=== PATIENT | male | born 1980 | race Two or more races ===

== ENCOUNTER 2022-05-21 11:54 | Emergency (ER) | payer MEDICAID, SELFPAY ==
[2022-05-21 12:23] VITALS: BP 127/88; PULSE 87; RESP 28; TEMP 36.7; O2SAT 98; BMI 34.0
--- NOTE | 2022-05-21 12:45 | ED_ITS ---
HPI - General Adult General Time Seen by Provider: 12:35 Date Seen: 05/21/22 Chief complaint: Back Injury/Pain Stated complaint: Lower back pain Time Seen by Provider: 05/21/22 12:04 Source: patient Mode of arrival: ambulatory Limitations: no limitations History of Present Illness HPI narrative: This 41-year-old male comes in reporting low back pain over the past several days. He has a history of back pain from lumbar radiculopathy that occurred about 5 years ago. He comes in because of severe back pain that radiates down his left leg. He states that he has not taken any medications at home for this. He does report that he has an appointment in a few weeks to have a steroid injection into his back. Location: back Radiation: non-radiation (Radiates to the left leg.) Severity: severe Pain Consistency: constant Relieving factors: none Exacerbating factors: none Related Data Previous Rx's Medication Instructions Recorded cyclobenzaprine 10 mg tablet 10 mg PO TID #15 tab 05/21/22 ketorolac 10 mg tablet 10 mg PO TID 5 Days #15 tab 05/21/22 methylprednisolone 4 mg tablets in 4 mg PO DAILY #21 ea 05/21/22 a dose pack Allergies Allergy/AdvReac Type Severity Reaction Status Date / Time No Known Drug Allergies Allergy Verified 05/21/22 12:28 Review of Systems Status of ROS: Reports: 10 or more systems reviewed and unremarkable except as noted in History and below Const: Denies: fever Eyes: Denies: change in vision ENMT: Reports: throat pain and ear pain Cardio: Denies: chest pain or shortness of breath with exertion Resp: Denies: shortness of breath GI: Denies: abdominal pain : Denies: painful urination Musculo: Reports: back pain Neuro: Denies: numbness in extremities Psych: Denies: anxiety or suicidal ideation Endo: Denies: excessive urination Sky/Lymph: Denies: easy bruising or easy bleeding PFSH PFSH Social History Smoking Status: Current every day smoker What tobacco products do you use: cigarettes Do you use any of these nicotine containing products: None Second hand tobacco smoke exposure: Yes How often do you have a drink containing alcohol: 2-3 times a week How many standard drinks containing alcohol do you have on a typical day: 1 or 2 AUDIT-C Alcohol total score: 3 Non-prescribed substance use: denies use Exam Const: Vital Signs, click to edit/add: Vital Signs - 24 hr 05/21/22 12:23 05/21/22 13:51 Temperature 98.1 F Pulse Rate [Left P ulse Oximeter] 87 72 Respiratory Rate 28 H Blood Pressure [Le ft Upper Arm] 127/88 132/86 Pulse Oximetry 98 99 Common normals: oriented x3 General appearance: cooperative Orientation/consciousness: Yes oriented to person, Yes oriented to place and Yes oriented to time HENMT: Common normals: normocephalic and TM's normal bilaterally Head and scalp: normal to inspection and normocephalic Face and sinus: normal facial exam Tympanic membrane: TM's normal bilaterally Mouth: other (Pharyngeal erythema without exudate.) Eye: Common normals: PERRL Pupil: PERRL Neck & C-Spine: Common normals: full ROM Chest: Common normals: inspection of chest normal Resp: Common normals: normal respiratory effort, no use of accessory muscles and clear to auscultation bilaterally Auscultation: clear to auscultation bilaterally Cardio: Common normals: regular rhythm Rhythm: regular rhythm GI: Common normals: Normal to inspection, nondistended, normoactive bowel sounds present : Common normals: no CVA tenderness Bladder/kidney exam: no CVA tenderness Back & Pelvis: Common normals: no CVA tenderness Lumbar spine/lower back: paraspinal muscle tenderness Extremity: Common normals: normal to inspection Neuro: Common normals: oriented x3 Sensorium/orientation: oriented to person, oriented to place and oriented to time Psych: Common normals: mental status grossly normal Skin: Common normals: no rashes or lesions noted General skin exam: no rashes or lesions noted Course Course Hospital Course: This patient comes in with recurrent onset of low back pain as described above. He does not have any injury or strenuous activity that is triggered these symptoms. He does have a history of lumbar radiculopathy. The patient received an intramuscular injection of Toradol 30 mg. He was also complaining of a sore throat. Rapid strep test was acquired. The patient did not care to wait for the results of the rapid strep test. He was very interested in leaving. He did agree to received prescriptions for Toradol, Flexeril, and Medrol Dosepak. Vital Signs Vital signs: Initial Vital Signs Temperature 98.1 F 05/21/22 12:23 Temperature Source Temporal Artery Scan 05/21/22 12:23 Pulse Rate 87 05/21/22 12:23 Respiratory Rate 28 H 05/21/22 12:23 Blood Pressure 127/88 05/21/22 12:23 Blood Pressure Mean 101 05/21/22 12:23 Blood Pressure Position Supine 05/21/22 12:23 Pulse Oximetry 98 05/21/22 12:23 Oxygen Delivery Method 05/21/22 12:23 Vital Signs Temperature 98.1 F 05/21/22 12:23 Pulse Rate 87 05/21/22 12:23 Respiratory Rate 28 H 05/21/22 12:23 Blood Pressure 127/88 05/21/22 12:23 Pulse Oximetry 98 05/21/22 12:23 Temperature 98.1 F 05/21/22 12:23 Pulse Rate 72 05/21/22 13:51 Respiratory Rate 28 H 05/21/22 12:23 Blood Pressure 132/86 05/21/22 13:51 Pulse Oximetry 99 05/21/22 13:51 Medical Decision Making MDM Narrative Medical decision making narrative: This patient comes in with symptoms suspicious for lumbar radiculopathy. He also has a sore throat. Prescriptions are provided for Toradol, Flexeril, and Medrol Dosepak. He prefers to leave and states that he will check my chart for lab results of the strep test. Discharge Plan Discharge Clinical Impression: Lumbar radiculopathy Patient Disposition: Home, Self-Care Condition: Unchanged Instructions: Lumbar Radiculopathy (ED) Discharge Diet: Regular Prescriptions: New ketorolac 10 mg tablet 10 mg PO TID 5 Days Qty: 15 0RF cyclobenzaprine 10 mg tablet 10 mg PO TID Qty: 15 0RF methylprednisolone 4 mg tablets,dose pack 4 mg PO DAILY Qty: 21 0RF Follow Up/Referrals: Mason Cramer DO [Referring] - Stand Alone Forms: [facility]
[2022-05-21] MEDS: KETOROLAC 30 MG/ML inj IM (13:28)
[2022-05-21 13:51] VITALS: BP 132/86; PULSE 72; O2SAT 99
--- NOTE | 2022-05-21 14:00 | ED.NURSE ---
Pt did not want to wait for DC paperwork, stated he was going outside to get a sandwich from his and would come back in. Pt did not return back inside. Pt sent his back inside to pecan picker his DC paperwork. DC paperwork not ready at this time, pt did not want to wait for paperwork either, pt confirmed pt pharmacy preference of [facility] in [place] and then left as well.
[2022-05-21 14:37] VITALS: BP 132/86; PULSE 72; RESP 24
[2022-05-21 16:16] LABS: Strep A DNA Probe* DETECTED (No Detected)
== END 2022-05-21 14:00 | disposition home or self-care (01) ==
PROVIDERS: Emergency Provider Emergency Medicine Emergency Medical Services
DX: M54.16 Radiculopathy, lumbar region (principal); J02.0 Streptococcal pharyngitis
CPT/HCPCS: 96372; 87651; 99283; 99284; J1885

== ENCOUNTER 2022-06-09 07:44 | Outpatient (CLI) | payer MEDICAID, SELFPAY | END 2022-06-09 07:45 | disposition home or self-care (01) | LOC: INJ CL 07:45 | PROVIDERS: Visit Provider Family Medicine | DX: M54.16 Radiculopathy, lumbar region (principal); M51.36 Other intervertebral disc degeneration, lumbar region | CPT/HCPCS: 62323; J0702; Q9966 ==

== ENCOUNTER 2023-06-26 05:15 | Emergency (ER) | payer MEDICAID, SELFPAY ==
[2023-06-26 05:25] VITALS: BP 140/97; PULSE 68; RESP 24; TEMP 36.1; O2SAT 96
--- NOTE | 2023-06-26 05:27 | CRLHL7_ITS ---
For Patients: As a result of the Century Cures Act, medical imaging exams and procedure reports are released immediately into your electronic medical record. You may view this report before your referring provider. If you have questions, please contact your health care provider. Indication: Fall Technique: Volumetric multidetector CT images of the cervical spine were obtained without the administration of IV contrast. Comparison: None available. Findings: The cervical vertebral body heights are grossly maintained. There is straightening of the normal cervical lordosis without evidence of significant spondylolisthesis. There is no displaced fracture or dislocation. There is mild multilevel degenerative disc disease with disc height loss and marginal osteophyte formation worse at the C6-C7 level. The facets are well imbricated. The paraspinous soft tissues are grossly within normal limits. Impression: Mild degenerative change and likely positional straightening of the normal cervical lordosis without evidence of displaced fracture. Please note that all CT scans at this facility use dose modulation, iterative reconstruction, and/or weight-based dosing when appropriate to reduce radiation dose to as low as reasonably achievable. Dictated by Rogelio Aranda MD @ 06/26/2023 6:14:28 AM (Electronically Signed)
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
--- NOTE | 2023-06-26 05:27 | CRLHL7_ITS ---
For Patients: As a result of the Century Cures Act, medical imaging exams and procedure reports are released immediately into your electronic medical record. You may view this report before your referring provider. If you have questions, please contact your health care provider. Indication: Fall, intoxication Technique: Volumetric multidetector CT images of the chest, abdomen, and pelvis were obtained without the administration of intravenous contrast. No low osmolar intravenous contrast Comparison: None available. FINDINGS: CHEST The thoracic inlet is unremarkable. The thyroid gland is within normal limits. The thoracic aorta is nonaneurysmal. The pulmonary arteries are nondilated. There is no mediastinal, hilar, or axillary adenopathy. There is no focal consolidation, effusion, or pneumothorax. The thoracic osseus structures are intact without fracture, lytic, or blastic lesion. The thoracic vertebral body heights are grossly maintained with minimal endplate Schmorl`s defects. There is no significant spondylolisthesis or displaced fracture. ABDOMEN AND PELVIS The liver is moderately enlarged without obvious focal abnormality. The spleen is normal in attenuation and size. The gallbladder is unremarkable without radiopaque calculus. There is no intrahepatic or common ductal dilatation. There is marked distention of the stomach with fluid. The pancreas is normal in attenuation without significant atrophy. The adrenal glands are unremarkable without evidence of adenoma. The kidneys demonstrate no evidence of obstructive radiopaque calculus. There is a mild to moderate amount of intracolonic stool. There is minimal distal colonic diverticulosis. The appendix is unremarkable without significant inflammatory change. The abdominal aorta is nonaneurysmal with no significant atherosclerotic disease. The remaining solid pelvic viscera are otherwise grossly unremarkable. There is no pathologically enlarged epigastric, mesenteric, retroperitoneal, or pelvic sidewall lymph node. The anterior abdominal wall is grossly intact without significant hernias. There is no free air or free fluid. Degenerative changes of the bilateral hips and sacroiliac joints are appreciated. The lumbar vertebral body heights are grossly maintained with mild multi-level degenerative disc disease. Impression: 1. No acute cardiopulmonary abnormality. 2. No acute intra-abdominal abnormality is appreciated. 3. Incidental note made of moderate distention of the stomach. Please note that all CT scans at this facility use dose modulation, iterative reconstruction, and/or weight-based dosing when appropriate to reduce radiation dose to as low as reasonably achievable. Dictated by Rogelio Aranda MD @ 06/26/2023 6:19:02 AM (Electronically Signed)
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
[2023-06-26 05:59] LABS: Basophils Percent Auto 0.3 % (0.0-3.0); Eosinophils Percent Auto 0.3 % (0.0-7.0); Hematocrit 42.5 % (37.0-53.0); Hemoglobin* 14.9 gm/dL (13.5-17.5); Immature Granulocytes Pct Auto 1.1 %; Lymphocytes Percent Auto 11.7 % (20-44); Mean Corpuscular HGB Conc 35 gm/dL (32-36); Mean Corpuscular Hemoglobin 31 pg (26-34); Mean Corpuscular Volume 88 fL (80-100); Monocytes Percent Auto 3.5 % (0.0-11.0); Neutrophils Percent Auto 83.1 % (42.0-72.0); Platelet Count* 320 K/uL (140-440); RDW Coefficient of Variation % 11.9 % (11.5-15.5); Red Blood Count 4.85 m/uL (4.30-5.90); White Blood Count* 11.64 K/uL (4.50-11.00)
[2023-06-26 06:00] LABS: Slide Review Reflex No
[2023-06-26 06:07] LABS: Albumin* 4.6 g/dL (3.3-5.0)
[2023-06-26 06:08] LABS: Chloride* 100 mmol/L (96-114); Potassium* 3.5 mmol/L (3.6-5.1); Sodium* 137 mmol/L (135-149)
[2023-06-26 06:10] LABS: Bilirubin Total* 0.4 mg/dL (0.1-1.5); Creatinine* 1.1 mg/dL (0.5-1.5); Estimated Glomerular Filt Rate 87 ml/min
[2023-06-26 06:11] LABS: Alanine Aminotransferase* 23 U/L (4-50); Alkaline Phosphatase* 77 U/L (40-150); Aspartate Amino Transferase* 32 U/L (12-35); Blood Urea Nitrogen* 11 mg/dL (5-24); Calcium* 10.8 mg/dL (8.4-10.6); Carbon Dioxide* 27 mmol/L (20-32); Glucose* 105 mg/dL (60-115); Total Protein* 7.9 g/dL (6.0-8.3)
[2023-06-26 06:12] LABS: Ethanol* 0.11 % (0.01-0.03)
[2023-06-26] MEDS: TETANUS/DIPHTH/PERTUSSIS 0.5 ML SYRINGE IM (06:56)
--- NOTE | 2023-06-26 07:08 | ED.NURSE ---
patients left shoulder and left elbow cleaned and dressed with adaptic and bacitracin.
--- NOTE | 2023-06-26 18:42 | ED.NURSE ---
chart accessed as the was concerned as he was still dizzy. was told she was always welcomed to bring him back if they feel the need to do this.
== END 2023-06-26 07:09 | disposition home or self-care (01) ==
PROVIDERS: Emergency Provider Internal Medicine; PCP Student in an Organized Health Care Education/Training Program
DX: S00.01XA Abrasion of scalp, initial encounter (principal); S40.212A Abrasion of left shoulder, initial encounter; S50.312A Abrasion of left elbow, initial encounter; V19.3XXA Pedal cyclist (driver) (passenger) injured in unspecified nontraffic accident, initial encounter
CPT/HCPCS: 36415; 70450; 71250; 72125; 74176; 80053; 82077; 85025; 90471; 90715; 99284; 99291

== ENCOUNTER 2025-04-26 20:01 | Emergency (ER) | payer BC, SELFPAY ==
--- OUTSIDE RECORDS SUMMARY | 2025-04-26 20:03 | XMS_ITS | Clinical Summary ---
Author Organization [facility] Address [address] [place] [id number] Care Team Providers Care Cage Supervisor Name Role Phone Pcp, No Primary Care Provider Unavailabl e Allergies No known active allergies Medications albuterol HFA (PRO-AIR; VENTOLIN; PROVENTIL) 90 mcg/actuation inhalerIndications :Mild intermittent reactive airway disease without complication (HC) Inhale 1-2 Puffs by mouth every 4 hours if needed. 1 Each 3 1 Active albuterol (PROVENTIL) 0.083 % neb solutionIndication s:Mild intermittent asthma with acute exacerbation (HC) Inhale 3 mL (2.5 mg) via a nebulizer every 4 hours if needed for Shortness Of Breath. 150 mL 2 Active omeprazole (PRILOSEC) 40 mg Delayed-Release capsuleIndications :Gastroesophageal reflux disease without esophagitis Take 1 Capsule (40 mg) by mouth once daily before a meal. 90 Capsule 5 Active cyclobenzaprine (FLEXERIL) 10 mg tabletIndications: Spasm of right trapezius muscle Take 1 Tablet (10 mg) by mouth 3 times daily if needed for Muscle Spasm. Do not use within 8 hours of working or driving. 21 Tablet 5 Active levothyroxine (SYNTHROID) 25 mcg tabletIndications: Subclinical hypothyroidism Take 1 Tablet (25 mcg) by mouth before breakfast. 90 Tablet 5 Active cholecalciferol 50,000 unit capsuleIndications :Vitamin D deficiency Take 1 Capsule (50,000 units) by mouth every Wednesday and . 24 Capsule 5 Active Active Problems Problem Noted Date Diagnosed Date Subclinical hypothyroidism 02/02/2025 Vitamin D deficiency 02/02/2025 Tobacco dependence due to cigarettes 01/30/2025 Mild intermittent asthma with acute exacerbation 10/01/2022 Left lumbar radiculopathy 03/30/2022 Encounters Date Type Department Care Team Description 02/27/2025 8:10 AM CDT Office Visit [facility] [address] [place] [address] Swathi Kaufman PA Follow Up (Sertraline and flexeril) 02/27/2025 Travel 01/30/2025 8:15 AM CDT Office Visit [facility] [address] [place] [address] Peggy Sanders PA Physical (Non-Fasting. Feeling fatigued for about 2-3 weeks. Having concerns with sleeping. Sleeping about 5-6 hours a day, with some sleepless nights in between. Mind still races. The past 3 days has slept for about 18 hours a day. Having some neck pain and hands having stiffness and swollen.) 01/30/2025 Travel from Last 3 Months Immunizations Immunization Administration Dates Next Due Tdap 06/26/2023 Family History Medical History Relation Name Comments Hypertension Brother Hypertension Father Stroke Father Diabetes Mother Hypothyroidism Mother Cancer-breast Sister Hypertension Sister Relation Name Status Comments Brother Alive Father Mother Alive Sister Alive Social History Tobacco Use Types Packs/Day Years Used Date Smoking Tobacco: Every Day Cigarettes 0.5 24.6 Started: 2000 Smokeless Tobacco: Never Tobacco Cessation:Ready to Q uit: Not Asked; Counseling Given: Not Answered Alcohol Use Standard Drinks/Week Comments Yes 0 (1 standard drink = 0.6 oz pur e alcohol) PHQ-2 Answer Date Recorded PHQ-2 TOTAL SCORE 4 01/30/2025 Social Connections Answer Date Recorded Do you often feel lonely or isolated from those around you? 0 01/30/2025 Alcohol Use Answer Date Recorded How often do you have a drink containing alcohol ? 3 07/08/2022 How many drinks containing a lcohol do you have on a typical day when you are drinking? 4 07/08/2022 How often do you have five or more drinks on one occasion? 3 07/08/2022 Financial Resource Strain Answer Date R ecorded Difficulty of Paying Living Expenses 3 01/30/2025 Difficulty of Paying Living Expenses Not on file 01/30/2025 Food Insecurity Answer Date Recorded Do you worry your food will run out before you are able to buy more? 1 01/30/2025 Transportation Needs Answer Date Record ed Does lack of transportation keep you from medica l appointments? 1 01/30/2025 Does lack of transportation keep you from work, meetings or getting things that you need? 1 01/30/2025 Housing Stability Answer Date Recorded What is your housing situation today? 1 01/30/2025 Utilities Answer Date Recorded Do you have trouble paying f or utilities (for example, heat, electricity, water, phone)? 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 on file Not on casper e Obstetrics History Last Filed Vital Signs Vital Sign Reading Time Taken Comments Blood Pressure 118/82 02/27/2025 8:21 AM CDT Pulse 81 02/27/2025 8:21 AM CDT Temperature 36.6 C (97.9 F) 02/02/2023 8:14 PM CDT Respiratory Rate 18 02/02/2023 8:14 PM CDT Oxygen Saturation 96% 01/30/2025 8:27 AM CDT Inhaled Oxygen Concentration - - Weight 103.9 kg (229 lb) 02/27/2025 8:21 AM CDT Height 174 cm (5' 8.5) 01/30/2025 8:27 AM CDT Body Mass Index 34.31 01/30/2025 8:27 AM CDT Plan of Treatment Health Maintenance Due Date Last Done Comments Hepatitis B series for 19+ ( 1 of 3 - 19+ 3-dose series) 2001 Pneumococcal series for age 6-49 (1 of 2 - PCV) 2001 COVID-19 vaccine series ( season) 2024 09/04/2021, 07/30/2021 Influenza Vaccine (Season Ended) 2025 BMI (ht and wt on same day) for age 18+ 01/30/2026 0 01/30/2025, 12/15/2021 Depression screening for age 12+ 01/30/2026 01/31/20 25, 10/10/2021 Lipids for age 35-44 01/30/2030 01/30/2025 Tetanus booster 06/26/2033 06/26/2023 Tdap Completed 06/26/2023 HIV for age 15-65 Completed 01/30/2025 Hepatitis C screening for age 18-79 Completed 01/30 Procedures Procedure Name Priority Date/Time Associated Diagnosis Comments T4,FREE Routine 01/30/2025 9:38 AM CDT LIPID PANEL W REFLEX MEASURED LDL Routine 01/30/2025 9:38 AM CDT Screening for cardiovascular condition ANTI HCV Routine 01/30/2025 9:38 AM CDT Encounter for hepatitis C screening test for low risk patient ANTI HIV 1/2 Routine 01/30/2025 9:38 AM CDT Encounter for screening for human immunodeficiency virus (HIV) TSH WITH REFLEX Routine 01/30/2025 9:38 AM CDT Fatigue, unspecified type FERRITIN Routine 01/30/2025 9:38 AM CDT Fatigue, unspecified type CBC WITH AUTO DIFFERENTIAL Routine 01/30/2025 9:38 AM CDT Fatigue, unspecified type VITAMIN D 25 (DEFICIENCY) Routine 01/30/2025 9:38 AM CDT Fatigue, unspecified type from Last 3 Months Results * (ABNORMAL) TSH WITH REFLEX (01/30/2025 9:38 AM CDT) TSH W/REFLEX TO FT4 8.77(H) 0.40 - 4.50 mIU/L [facility] Blood BLOOD SPECIMEN / Unknown 01/30/2025 9:38 AM CDT 01/30/2025 9:38 AM CDT Peggy STOVER CHEMISTRY Final Res ult [employer] [facility] [address] [place] [address], [place] [phone] [facility] [address] [place] [address] * LIPID PANEL W REFLEX MEASURED LDL [[id number]} (01/30/2025 9:38 AM CDT) [facility] CHOLESTEROL, TOTAL 165 <200 mg/dL [facility] HDL CHOLESTEROL 79 > OR = 40 mg/dL [facility] TRIGLYCERIDES 60 <150 mg/dL [facility] LDL-CHOLESTEROL 72 mg/dL (calc) [facility] Comment: Reference range: <100 Desirable range <100 mg/dL for primary prevention; <70 mg/dL for patients with CHD or diabetic patients with > or = 2 CHD risk factors. LDL-C is now calculated using the Jonathan-Santiago calculation, which is a validated novel method providing better accuracy than the Friedewald equation in the estimation of LDL-C. Jonathan SS et al. TRINO. 2013;310(19): 2741-1792 (http://education.[employer]faq/TLQ720) CHOL/HDLC RATIO 2.1 <5.0 (calc) [facility] NON HDL CHOLESTEROL 86 <130 mg/dL (calc) [facility] Comment: For patients with diabetes plus 1 major ASCVD risk factor, treating to a non-HDL-C goal of <100 mg/dL (LDL-C of <70 mg/dL) is considered a therapeutic option. Blood BLOOD SPECIMEN / Unknown 01/30/2025 9:38 AM CDT 01/30/2025 9:38 AM CDT Peggy STOVER CHEMISTRY Final Res ult [employer] [facility] [address] [place] [address], [facility] [address] [place] [address] * (ABNORMAL) VITAMIN D 25 (DEFICIENCY) (01/30/2025 9:38 AM CDT) Pathologist [facility] VITAMIN D,25-OH,TOTAL,IA 11(L) 30 - 100 ng/mL [facility] Comment: Vitamin D Status 25-OH Vitamin D: Deficiency: <20 ng/mL Insufficiency: 20 - 29 ng/mL Optimal: > or = 30 ng/mL For 25-OH Vitamin D testing on patients on D2-supplementation and patients for whom quantitation of D2 and D3 fractions is required, the QuestAssureD(TM) 25-OH VIT D, (D2,D3), LC/MS/MS is recommended: order code [id number] (patients >2yrs). See Note 1 Note 1 For additional information, please refer to http://[employer]ioDx.[employer]faq/RSG340 (This link is being provided for informational/ educational purposes only.) Blood BLOOD SPECIMEN / Unknown 01/30/2025 9:38 AM CDT 01/30/2025 9:38 AM CDT Peggy STOVER SEND OUTS Final Res ult [employer] [facility] [address] [place] [address], [facility] [address] [place] [address] * ANTI HCV [57105.2] (01/30/2025 9:38 AM CDT) Pathologist [facility] HEPATITIS C ANTIBODY NON-REACTI VE NON-REACT FLACO [facility] Comment: HCV antibody was non-reactive. There is no laboratory evidence of HCV infection. In most cases, no further action is required. However, if recent HCV exposure is suspected, a test for HCV RNA (test code 57311) is suggested. For additional information please refer to http://education.[employer].K[employer]/faq/IBA95c9 (This link is being provided for informational/ educational purposes only.) Blood BLOOD SPECIMEN / Unknown 01/30/2025 9:38 AM CDT 01/30/2025 9:38 AM CDT Peggy Jimenestemo STOVER SEND OUTS Final Res ult Performing Organization Address [facility]/ZIP Co de Phone Number [employer] [facility] [address] [place] [address], [place] [phone] [facility] [address] [place] [address] * ANTI HIV 1/2 [48501.0] (01/30/2025 9:38 AM CDT) HIV AG/AB, 4TH GEN NON-REACT FLACO NON-REACT FLACO [facility] [place] Comment: HIV-1 antigen and HIV-1/HIV-2 antibodies were not detected. There is no laboratory evidence of HIV infection. PLEASE NOTE: This information has been disclosed to you from records whose confidentiality may be protected by state law. If your state requires such protection, then the state law prohibits you from making any further disclosure of the information without the specific written consent of the person to whom it pertains, or as otherwise permitted by law. A general authorization for the release of medical or other information is NOT sufficient for this purpose. For additional information please refer to http://CardioDx.[employer]OOWALK.Kids360/faq/ZRX868 (This link is being provided for informational/ educational purposes only.) The performance of this assay has not been clinically validated in patients less than 2 years old. Blood BLOOD SPECIMEN / Unknown 01/30/2025 9:38 AM CDT 01/30/2025 9:38 AM CDT Peggy Jessicarosa STOVER SEND OUTS Final Res ult Performing Organization Address [facility]/State/ZIP Co de Phone Number [employer] [facility] [address] [employer] [place] [address], [facility] [address] [facility] [place] [address] * CBC AND DIFFERENTIAL (01/30/2025 9:38 AM CDT) WHITE BLOOD CELL COUNT 8.3 3.8 - 10.8 Thousand/u L [facility] RED BLOOD CELL COUNT 4.62 4.20 - 5.80 Million/uL [facility] HEMOGLOBIN 14.3 13.2 - 17.1 g/dL [facility] HEMATOCRIT 42.8 38.5 - 50.0 % [facility] MCV 92.6 80.0 - 100.0 fL [facility] MCH 31.0 27.0 - 33.0 pg [facility] MCHC 33.4 32.0 - 36.0 g/dL [facility] Comment: For adults, a slight decrease in the calculated MCHC value (in the range of 30 to 32 g/dL) is most likely not clinically significant; however, it should be interpreted with caution in correlation with other red cell parameters and the patient's clinical condition. RDW 12.5 11.0 - 15.0 % [facility] PLATELET COUNT 334 140 - 400 Thousand/u L [facility] MPV 10.9 7.5 - 12.5 fL [facility] ABSOLUTE NEUTROPHILS 4,955 1,500 - 7,800 cells/uL [facility] ABSOLUTE LYMPHOCYTES 2,440 850 - 3,900 cells/uL [facility] ABSOLUTE MONOCYTES 639 200 - 950 cells/uL [facility] ABSOLUTE EOSINOPHILS 216 15 - 500 cells/uL [facility] ABSOLUTE BASOPHILS 50 0 - 200 cells/uL [facility] NEUTROPHILS 59.7 % [facility] LYMPHOCYTES 29.4 % [facility] MONOCYTES 7.7 % [facility] EOSINOPHILS 2.6 % [facility] BASOPHILS 0.6 % [facility] Blood BLOOD SPECIMEN / Unknown 01/30/2025 9:38 AM CDT 01/30/2025 9:38 AM CDT Peggy STOVER HEMATOLOGY Final Res ult Performing Organization Address [facility]/ZIP Co de Phone Number [facility] [address] [place] [address], [place] [phone] [facility] [address] [place] [address] * T4,FREE (01/30/2025 9:38 AM CDT) T4, FREE 1.1 0.8 - 1.8 ng/dL [facility] 01/30/2025 9:38 AM CDT 01/30/2025 9:38 AM CDT Peggy STOVER CHEMISTRY Final Res ult Performing Organization Address [facility] Co de Phone Number [facility] [address] [place] [address], [place] [phone] [facility] [address] [place] [address] * FERRITIN (01/30/2025 9:38 AM CDT) FERRITIN 42 38 - 380 ng/mL [facility] Blood BLOOD SPECIMEN / Unknown 01/30/2025 9:38 AM CDT 01/30/2025 9:38 AM CDT Peggy STOVER CHEMISTRY Final Res ult Performing Organization Address City/[facility]/ZIP Co de Phone Number [facility] [address] [place] [address], [place] [phone] [facility] [address] [place] [address] from Last 3 Months Insurance [facility] * Guarantor: [facility] Contract, [facility] 2012 Account Type Relation to Patient Date of Phone Billing Address Contract [address] [place] [address] Care Teams Cage Supervisor Relationship Specialty Start Date End Date Pcp, No . PCP - General 10/22/20
[2025-04-26 20:06] VITALS: BP 110/75; PULSE 80; RESP 20; TEMP 36.7; O2SAT 97; BMI 34.0
--- NOTE | 2025-04-26 21:14 | ED_ITS ---
HPI - General Adult General Date Seen: 04/26/25 Chief complaint: Shoulder Injury/Pain Stated complaint: L shoulder pain Time Seen by Provider: 04/26/25 20:06 History of Present Illness HPI narrative: LEFT WITHOUT BEING SEEN Related Data Previous Rx's ?Medication ?Instructions ?Recorded albuterol sulfate 90 mcg/actuation 2 puff inhalation Q 4-6H PRN 01/12/24 aerosol inhaler shortness of breath or wheez ing #1 packet methylprednisolone 4 mg tablets in See Rx Instructions PO PER PKG DIR 04/12/25 a dose pack #21 ea Allergies Allergy/AdvReac Type Severity Reaction Status Date / Time No Known Drug Allergies Allergy Verified 04/12/25 18:52 PFSH PFS Social History Smoking Status: Current every day smoker What tobacco products do you use: cigarettes Do you use any of these nicotine containing products: None Second hand tobacco smoke exposure: Yes How often do you have a drink containing alcohol: 2-3 times a week How many standard drinks containing alcohol do you have on a typical day: 1 or 2 AUDIT-C Alcohol total score: 3 Non-prescribed substance use: denies use Exam Const: Vital Signs, click to edit/add: Vital Signs - 24 hr 04/26/25 20:06 Temperature 98.1 F Pulse Rate [Pulse Oximeter] 80 Respiratory Rate 20 Blood Pressure [Ri ght Upper Arm] 110/75 Pulse Oximetry 97 Oxygen Delivery Me thod Room Air Course Vital Signs Vital signs: Initial Vital Signs Temperature 98.1 F 04/26/25 20:06 Temperature Source Temporal Artery Scan 04/26/25 20:06 Pulse Rate 80 04/26/25 20:06 Pulse Rhythm Regular 04/26/25 20:06 Respiratory Rate 20 04/26/25 20:06 Blood Pressure 110/75 04/26/25 20:06 Blood Pressure Mean 86 04/26/25 20:06 Blood Pressure Position Sitting 04/26/25 20:06 Pulse Oximetry 97 04/26/25 20:06 Oxygen Delivery Method Room Air 04/26/25 20:06 Vital Signs Temperature 98.1 F 04/26/25 20:06 Pulse Rate 80 04/26/25 20:06 Respiratory Rate 20 04/26/25 20:06 Blood Pressure 110/75 04/26/25 20:06 Pulse Oximetry 97 04/26/25 20:06 Oxygen Delivery Method Room Air 04/26/25 20:06 Temperature 98.1 F 04/26/25 20:06 Pulse Rate 80 04/26/25 20:06 Respiratory Rate 20 04/26/25 20:06 Blood Pressure 110/75 04/26/25 20:06 Pulse Oximetry 97 04/26/25 20:06 Oxygen Delivery Method Room Air 04/26/25 20:06 Discharge Plan Discharge Prescriptions: No Action albuterol sulfate 90 mcg/actuation HFA aerosol inhaler 2 puff inhalation Q4-6H PRN (Reason: shortness of breath or wheezing) Qty: 1 12RF methylprednisolone 4 mg tablets,dose pack See Rx Instructions PO PER PKG DIR Qty: 21 0RF Rx Instructions: PO PER PKG DIR Follow Up/Referrals: TREV PRESTON DO [Primary Care Provider, Family Practice]
== END 2025-04-26 22:45 | disposition home or self-care (01) ==
LOC: ED 22:09
PROVIDERS: Emergency Provider Emergency Medicine; PCP Student in an Organized Health Care Education/Training Program
DX: R51.9 Headache, unspecified (principal); I10 Essential (primary) hypertension
CPT/HCPCS: 99281; 99282; 99283

== ENCOUNTER 2025-05-09 20:34 | Emergency (ER) | payer BC, SELFPAY ==
--- OUTSIDE RECORDS SUMMARY | 2025-05-09 20:36 | XMS_ITS | Clinical Summary ---
Author Organization [facility] Address [address] [place] [id number] Care Team Providers Care Couples Therapist Name Role Phone Pcp, No Primary Care [...] Wednesday and . 24 Capsule 5 Active tiZANidine 2 mg tabletIndications: Left shoulder pain, unspecified chronicity Take 1-2 Tablets (2-4 mg) by mouth every 6 hours if needed for Muscle Spasm. 30 Tablet 5 Active lidocaine 5 % topical gelIndications:Lef t shoulder pain, unspecified chronicity Apply topically to affected area(s) 4 times daily if needed (pain). Apply to affected areas. 113 g 5 Active predniSONE 20 mg tabletIndications: Left shoulder pain, unspecified chronicity Take 2 Tablets (40 mg) by mouth once daily with a meal for 5 days. 10 Tablet 5 025 Active Problems Problem Noted Date Diagnosed Date Subclinical hypothyroidism 02/02/2025 Vitamin D deficiency 02/02/2025 Tobacco dependence due to cigarettes 01/30/2025 Mild intermittent asthma with acute exacerbation 10/01/2022 Left lumbar radiculopathy 03/30/2022 Encounters Date Type Department Care Team Description 04/30/2025 Telephone [facility] [address] [facility] [address] [place] [address] Perri Contreras, ATC Appointment 04/27/2025 6:55 PM CDT Ancillary Procedure [facility] [address] [place] [address] 04/27/2025 6:05 PM CDT Office Visit [facility] [address] [place] [address] Marguerite Hook, SHEETER MACHINE OPERATOR Shoulder Pain/problem (left) 04/27/2025 Travel 02/27/2025 8:10 AM CDT Office Visit [facility] [address] [place] [address] Swathi Kaufman PA Follow Up (Sertraline and flexeril) 02/27/2025 Travel from Last 3 Months Immunizations Immunization [...] Answered Alcohol Use Standard Drinks/Week Comments Yes 1 (1 standard drink = 0.6 oz pur [...] on file Legal Sex Male 8:15 AM [employer] Gender Identity Not on file Sexual Orientation Not on file 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 on file Not on casper e Obstetrics History Last Filed Vital Signs Vital Sign Reading Time Taken Comments Blood Pressure 120/71 04/27/2025 6:27 PM CDT Pulse 69 04/27/2025 6:27 PM CDT Temperature 36.7 C (98.1 F) 04/27/2025 6:27 PM CDT Respiratory Rate 16 04/27/2025 6:27 PM CDT Oxygen Saturation 98% 04/27/2025 6:27 PM CDT Inhaled Oxygen Concentration - - Weight 109.3 kg (241 lb) 04/27/2025 6:27 PM CDT Height 174 cm (5' 8.5) 01/30/2025 8:27 AM CDT Body Mass Index 36.11 01/30/2025 8:27 AM CDT Plan of Treatment Health Maintenance Due Date Last Done Comments Hepatitis B series for 19+ ( 1 of 3 - 19+ 3-dose series) 2001 Pneumococcal series for age 6-49 (1 of 2 - PCV) 2001 COVID-19 vaccine series (3 - 2023- season) 2024 09/04/2021, 07/30/2021 Influenza Vaccine (Season Ended) 2025 BMI (ht and wt on same day) for age 18+ 01/30/2026 0 01/30/2025, 12/15/2021 Depression screening for age 12+ 01/30/2026 01/31/20, 10/10/2021 Lipids for age 35-44 01/30/2030 01/30/2025 Tetanus booster 06/26/2033 06/26/2023 Tdap Completed 06/26/2023 HIV for age 15-65 Completed 01/30/2025 Hepatitis C screening for age 18-79 Completed 01/30 Procedures Procedure Name Priority Date/Time Associated Diagnosis Comments XR SHOULDER 3 VIEWS LEFT STAT 04/27/2025 7:01 PM CDT Left shoulder pain, unspecified chronicity ANTI HIV 1/2 Routine 01/30/2025 9:38 AM CDT Encounter for screening for human immunodeficiency virus (HIV) ANTI HCV Routine 01/30/2025 9:38 AM CDT Encounter for hepatitis C screening test for low risk patient LIPID PANEL W REFLEX MEASURED LDL Routine 01/30/2025 9:38 AM CDT Screening for cardiovascular condition from Last 3 Months or Most Recently Relevant to Health Maintenance Results * XR SHOULDER 3 VIEWS LEFT (04/27/2025 7:01 PM CDT) Anatomical Region Laterality Modality SHOULDERS, SHOULDER L Computed R adiography 04/27/2025 7:12 PM CDT Narrative 04/27/2025 7:12 PM CDT For Patients: As a result of the Cures Act, medical imaging exams and procedure reports are released immediately into your electronic medical record. You may view this report before your referring provider. If you have questions, please contact your health care provider. Indication: Left shoulder pain. Technique: Left shoulder 3 views. Comparison: None. Findings: Bones: Alignment is normal. No acute fracture or suspicious bone lesion. Joint spaces: Unremarkable. Soft tissues: Unremarkable. Impression: No evidence of an acute bony abnormality. Dictated by Abhilash De La Cruz MD @ 04/27/2025 7:12:26 PM (Electronically Signed) Procedure Note Abhilash De La Cruz MD - 04/27/2025 For Patients: As a result of the Cures Act, medical imagingexams and procedure reports are released immediately into your electronicmedical record. You may view this report before your referring provider.If you have questions, please contact your health care provider. Indication: Left shoulder pain. Technique: Left shoulder 3 views. Comparison: None. Findings: Bones: Alignment is normal. No acute fracture or suspicious bone lesion. Joint spaces: Unremarkable. Soft tissues: Unremarkable. Impression: No evidence of an acute bony abnormality. Dictated by Abhilash De La Cruz MD @ 04/27/2025 7:12:26 PM (Electronically Signed) Result Cathryn Hook NP GENERAL IMAGING Final Result * LIPID PANEL W REFLEX MEASURED LDL [[id number]} (01/30/2025 9:38 AM CDT) [facility] CHOLESTEROL, TOTAL 165 <200 mg/dL [facility] [...] equation in the estimation of LDL-C. Jonathan DUBON et al. TRINO. 2013;310(19): 9870-1726 (http://InnoCC.Squee/faq/SPN304) CHOL/HDLC RATIO 2.1 <5.0 (calc) [facility] Adan NON HDL CHOLESTEROL 86 <130 mg/dL (calc) [facility] Arellano Comment: For patients with diabetes plus 1 major ASCVD risk factor, treating to a non-HDL-C goal of <100 mg/dL (LDL-C of <70 mg/dL) is considered a therapeutic option. Blood BLOOD SPECIMEN / Unknown 01/30/2025 9:38 AM CDT 01/30/2025 9:38 AM CDT us Peggy STOVER CHEMISTRY Final Res ult [facility] [address] [place] [address], [facility] [address] [place] [address] * ANTI HCV [38774.2] (01/30/2025 9:38 AM CDT) HEPATITIS C ANTIBODY NON-REACTI VE NON-REACT FLACO [facility] emmy Corralese Comment: HCV antibody was non-reactive. There is no laboratory evidence of HCV infection. In most cases, no further action is required. However, if recent HCV exposure is suspected, a test for HCV RNA (test code 02690) is suggested. For additional information please refer to http://education.FinanzCheck.TapTalents/faq/MGS72d3 (This link is being provided for informational/ educational purposes only.) Blood BLOOD SPECIMEN / Unknown 01/30/2025 9:38 AM CDT 01/30/2025 9:38 AM CDT us Peggy STOVER SEND OUTS Final Res ult Performing Organization Address [facility] Co de Phone Number [facility]Date [facility] [address] [place] [address], [facility] [address] [place] [address] * ANTI HIV 1/2 [63655.0] (01/30/2025 9:38 AM CDT) HIV AG/AB, 4TH GEN NON-REACT FLACO NON-REACT FLACO [facility] Comment: HIV-1 antigen and HIV-1/HIV-2 antibodies were [...] purpose. For additional information please refer to http://education.Lagrange Systems/faq/WGX180 (This link is being provided for informational/ educational purposes only.) The performance of this assay has not been clinically validated in patients less than 2 years old. Blood BLOOD SPECIMEN / Unknown 01/30/2025 9:38 AM CDT 01/30/2025 9:38 AM CDT Peggy STOVER SEND OUTS Final Res ult Performing Organization Address [facility] Co de Phone Number [employer] [facility] [address] [place] [address], [facility] [address] [place] [address] from Last 3 Months or Most Recently Relevant to Health Maintenance Insurance [phone] [address] [facility] [phone] [address] [address] [phone] [address] [phone] [address] [place] [address] Care Teams Couples Therapist Relationship Specialty Start Date End Date Pcp, No . PCP - General 10/22/20
[2025-05-09 20:37] VITALS: BP 130/87; PULSE 71; RESP 20; TEMP 35.4; O2SAT 97; BMI 33.4
--- NOTE | 2025-05-09 21:17 | ED_ITS ---
HPI - General Adult General Date Seen: 05/09/25 Chief complaint: Hypertension Stated complaint: high blood pressure, headache Time Seen by Provider: 05/09/25 20:44 Source: patient Mode of arrival: ambulatory Limitations: no limitations History of Present Illness HPI narrative: Patient is a 44-year-old male presenting to emergency department for concerns of hypertension and a headache. States he has been doing of the headache for the past week. Seems to come and go. He has also been concerned about his blood pressure. Yesterday he was seen in the emergency department for an asthma e xacerbation and noticed he had elevated blood pressure. He has no history of high blood pressure that he is aware of. Has checked his blood pressure multiple times over the past few days due to his concern about his blood pressure. The highest was 161 systolic. Today he was not feeling well and decided to go check for pressure again it was in the 140s. Due to that he came to the emergency department. Blood pressure now is 130/87. States his only medical issues are asthma and hypothyroidism. Does states he has a primary care provider that he sees. Chart review does show he has had hypertension before but has never been needed to be started on blood pressure medication. States the asthma has been making him short of breath occasionally but it gets better with his inhaler. Denies shortness of breath at this time. States when he coughs he will have some mild chest pain but denies any chest pain at this time. States he will have occasional blurry vision with the headache but denies any blurry vision at this time. States right now he is feeling asymptomatic other than the headache. Related Data Home Medications ?Medication ?Instructions ?Recorded ?Confirmed levothyroxine 25 mcg tablet 25 mcg PO DAILY 05/09/25 0 05/09/25 methocarbamol 750 mg tablet 750 mg PO QPM 05/09/25 sertraline 25 mg tablet 25 mg PO DAILY 05/09/2504/22 tizanidine 2 mg tablet mg PO 05/09/25 Previous Rx's ?Medication ?Instructions ?Recorded albuterol sulfate 90 mcg/actuation 2 puff inhalation Q 4-6H PRN 01/12/24 aerosol inhaler shortness of breath or wheez ing #1 packet methylprednisolone 4 mg tablets in See Rx Instructions PO PER PKG DIR 04/12/25 a dose pack #21 ea benzonatate 100 mg capsule 100 mg PO TID PRN cough #30 caps 05/08/25 prednisone 20 mg tablet 40 mg (2 x 20 mg) PO QDAY #1 0 tabs 05/08/25 Allergies Allergy/AdvReac Type Severity Reaction Status Date / Time pollen extracts Allergy Intermediate Verified 05/08/25 12:52 Review of Systems Status of ROS: Reports: 10 or more systems reviewed and unremarkable except as noted in History and below PFSH PFS Social History Smoking Status: Current every day smoker What tobacco products do you use: cigarettes Do you use any of these nicotine containing products: None Second hand tobacco smoke exposure: Yes How often do you have a drink containing alcohol: 2-3 times a week How many standard drinks containing alcohol do you have on a typical day: 1 or 2 AUDIT-C Alcohol total score: 3 Non-prescribed substance use: denies use Exam Narrative: Exam Narrative: Const: Well-nourished, Well-developed, in mild distress Eyes: PERRL, no conjunctival injection, and symmetrical lids HENT: Atraumatic external nose and ears. Moist mucous membranes. Neck: Symmetric, trachea midline, No thyromegaly. CVS: RRR, No murmurs or gallops. Peripheral pulses 2+ and equal in all extremities RESP: Unlabored respiratory effort. Clear to auscultation bilaterally. GI: Nontender/Nondistended, No rebound or guarding. MSK:Extremities w/o deformity, Normal Active ROM Skin: Warm, Dry. No rashes or lesions. Neuro: Normal Muscle tone, No focal neurological deficits. Psych: Awake, Alert, & Oriented x3. Appropriate mood and affect. Const: Vital Signs, click to edit/add: Vital Signs - 24 hr 05/09/25 20:37 Temperature 95.7 F L Pulse Rate [Pulse Oximeter] 71 Respiratory Rate 20 Blood Pressure [Ri ght Upper Arm] 130/87 Pulse Oximetry 97 Oxygen Delivery Me thod Room Air Course Vital Signs Vital signs: Initial Vital Signs Temperature 95.7 F L 05/09/25 20:37 Temperature Source Temporal Artery Scan 05/09/25 20:37 Pulse Rate 71 05/09/25 20:37 Respiratory Rate 20 05/09/25 20:37 Blood Pressure 130/87 05/09/25 20:37 Blood Pressure Mean 101 05/09/25 20:37 Blood Pressure Position Sitting 05/09/25 20:37 Pulse Oximetry 97 05/09/25 20:37 Oxygen Delivery Method Room Air 05/09/25 20:37 Vital Signs Temperature 95.7 F L 05/09/25 20:37 Pulse Rate 71 05/09/25 20:37 Respiratory Rate 20 05/09/25 20:37 Blood Pressure 130/87 05/09/25 20:37 Pulse Oximetry 97 05/09/25 20:37 Oxygen Delivery Method Room Air 05/09/25 20:37 Temperature 95.7 F L 05/09/25 20:37 Pulse Rate 71 05/09/25 20:37 Respiratory Rate 20 05/09/25 20:37 Blood Pressure 130/87 05/09/25 20:37 Pulse Oximetry 97 05/09/25 20:37 Oxygen Delivery Method Room Air 05/09/25 20:37 Medical Decision Making MDM Narrative Medical decision making narrative: Patient is a 44-year-old male presenting to the emergency department for hypertension and headache. His headache has only been going on for the past week intermittently. I offered him a migraine cocktail but he declined at this time and states he feels comfortable just taking pain medication at home for it. I do not believe imaging is necessary as he is not having any focal neurological deficits at this time. His blood pressure is normal now and he is otherwise asymptomatic. Also only has symptoms when his asthma is acting up. My concern for cardiac abnormalities is very low. ACEP guidelines does not recommend further workup and asymptomatic hypertension. I informed patient to have follow-up with his primary care provider for his blood pressure. He is agreeable to this plan Discharge Plan Discharge Clinical Impression: Hypertension Qualifiers: Hypertension type: unspecified Qualified Code(s): I10 - Essential (primary) hypertension Headache Qualifiers: Headache type: unspecified Headache chronicity pattern: unspecified pattern Intractability: not intractable Qualified Code(s): R51.9 - Headache, unspecified Patient Disposition: Home, Self-Care Condition: Stable Instructions: Acute Headache (ED), Hypertension (ED) Additional Instructions: I recommend close follow-up with the primary care provider about your high blood pressure. Also speak to them about headache if the headache continues. At home you can take [id number] headache medication. If the headache continues to persist, gets worse or develops any focal neurological issues I recommend returning for re-evaluation. Prescriptions: No Action prednisone 20 mg tablet 40 mg PO QDAY Qty: 10 0RF Rx Instructions: Take 2 tabs PO QAM x 5 days benzonatate 100 mg capsule 100 mg PO TID PRN (Reason: cough) Qty: 30 0RF albuterol sulfate 90 mcg/actuation HFA aerosol inhaler 2 puff inhalation Q4-6H PRN (Reason: shortness of breath or wheezing) Qty: 1 12RF methylprednisolone 4 mg tablets,dose pack See Rx Instructions PO PER PKG DIR Qty: 21 0RF Rx Instructions: PO PER PKG DIR tizanidine 2 mg tablet PO levothyroxine 25 mcg tablet 25 mcg PO DAILY methocarbamol 750 mg tablet 750 mg PO QPM sertraline 25 mg tablet 25 mg PO DAILY Follow Up/Referrals: TREV PRESTON DO [Primary Care Provider, Family Practice] [facility]: [facility] Info Instructions
== END 2025-05-09 21:29 | disposition home or self-care (01) ==
PROVIDERS: Emergency Provider Student in an Organized Health Care Education/Training Program; PCP Student in an Organized Health Care Education/Training Program
DX: I10 Essential (primary) hypertension (principal); R51.9 Headache, unspecified
CPT/HCPCS: 99283; 99284

== ENCOUNTER 2025-08-23 10:52 | Outpatient (CLI) | payer BC, SELFPAY | END 2025-08-23 10:53 | disposition home or self-care (01) | LOC: AMB 08-28 10:14 | PROVIDERS: PCP Student in an Organized Health Care Education/Training Program; Visit Provider Student in an Organized Health Care Education/Training Program | DX: R07.89 Other chest pain (principal); R51.9 Headache, unspecified | CPT/HCPCS: A0425; A0427 ==

== ENCOUNTER 2025-08-23 13:15 | Emergency (ER) | payer BC, SELFPAY ==
[2025-08-23] VITALS (11 sets, daily range): BP systolic 108–123; BP diastolic 67–98; PULSE 55–72; RESP 14–18; TEMP 36.3; O2SAT 96–99
--- NOTE | 2025-08-23 13:16 | ED.GENADULT ---
HPI - General Adult General Date Seen: 08/23/25 Chief complaint: Chest Pain Stated complaint: Chest pain Time Seen by Provider: 08/23/25 13:15 History of Present Illness HPI narrative: 44 yo with a history of asthma, but no known history of coronary disease, arrhythmia, hypertension, high cholesterol, diabetes, or chronic medical risk factors for coronary disease.. Patient does smoke tobacco and THC. He also sometimes drinks marijuana. He says he has been having trouble with heartburn for quite a long time (years) but is not on any medications for acid reflux. He has been healthy and well lately. Normally works night shifts but last night actually got sent home from work early because there was not enough for to do. He got 8 hour sleep and this morning woke up feeling well. He went for a bike ride and then lifted weights this morning and was feeling fine. He has not had any recent chest pains or other symptoms. This afternoon he was watching a movie about 30 minutes prior to arrival when he just started have a substernal pain in his chest. He got anxious and worried and called 911. Report from EMS is that they stabbed lotion IV. They did EKG that did not show STEMI. They administered nitro and brought him here to the ER. Patient says that the nitro he received from EMS made him feel worse He is not nauseous. He is not having any palpitations. The the pain is not her to breathe. The pain does not radiate through to his back. Related Data Previous Rx's ?Medication ?Instructions ?Recorded albuterol sulfate 90 mcg/actuation 2 puff inhalation Q4-6H PRN 01/12/24 aerosol inhaler shortness of breath or wheezing #1 packet omeprazole 40 mg capsule,delayed 40 mg PO DAILY #30 caps 08/23/25 release Allergies Allergy/AdvReac Type Severity Reaction Status Date / Time pollen extracts Allergy Intermediate Verified 08/23/25 13:23 PFSH PFS Social History Smoking Status: Current every day smoker What tobacco products do you use: cigarettes Do you use any of these nicotine containing products: None Second hand tobacco smoke exposure: Yes How often do you have a drink containing alcohol: 2-3 times a week How many standard drinks containing alcohol do you have on a typical day: 1 or 2 AUDIT-C Alcohol total score: 3 Non-prescribed substance use: denies use Exam Narrative: Exam Narrative: Constitutional: Appears well-developed and well-nourished. Alert. Conversant but somewhat anxious and dramatic. Non toxic. HENT: Head: Atraumatic. Nose: Nose normal. Mouth/Throat: Oral mucosa is clear and moist. no trismus. Pharynx normal. Tonsils symmetric. No tonsillar enlargement, erythema, or exudate. Eyes: Conjunctivae normal. EOM normal. Pupils equal, round, and reactive to light. No scleral icterus. Neck: Normal range of motion. Neck supple. No tracheal deviation present. No JVD Cardiovascular: Normal rate, regular rhythm. No gallop. No friction rub. No murmur heard. Symmetric radial and PT artery pulses Pulmonary/Chest: Effort normal. No stridor. No respiratory distress. No wheezes. No rales. No rhonchi . No tenderness. Abdominal: Soft. No distension. No mass. No tenderness. No rebound. No guarding. Musculoskeletal: RUE: Normal range of motion. No tenderness. No deformity LUE: Normal range of motion. No tenderness. No deformity RLE: Normal range of motion. No edema. No tenderness. No deformity LLE: Normal range of motion. No edema. No tenderness. No deformity Neurological: Alert and oriented to person, place, and time. Normal strength. CN II-VII intact. No sensory deficit. GCS eye subscore is 4. GCS verbal subscore is 5. GCS motor subscore is 6. Normal coordination Skin: Skin is warm and dry. No rash noted. No pallor. Normal capillary refill. Psychiatric: Very polite. Denies any recent specific stressors. He says he was feeling well this morning. He does have an anxious affect. He does currently use tobacco, THC, alcohol. He formally had used cocaine recreationally but has not used any of that in more than 6 years. No other drugs. Const: Vital Signs, click to edit/add: Vital Signs - 24 hr 08/23/25 13:20 08/23/25 13:34 08/23/25 13:51 Temperature 97.3 F L Pulse Rate 69 64 Pulse Rate [Right Pulse Oximeter] 72 Respiratory Rate 18 16 15 Blood Pressure Blood Pressure [Ri ght Upper Arm] 123/89 Pulse Oximetry 98 96 98 Oxygen Delivery Me thod Room Air 08/23/25 13:53 08/23/25 13:54 08/23/25 14:00 Temperature Pulse Rate 61 62 64 Pulse Rate [Right Pulse Oximeter] Respiratory Rate 14 14 Blood Pressure 113/75 Blood Pressure [Ri ght Upper Arm] Pulse Oximetry 97 96 96 Oxygen Delivery Me thod 08/23/25 14:09 08/23/25 14:15 08/23/25 14:22 Temperature Pulse Rate 55 L 58 L 60 Pulse Rate [Right Pulse Oximeter] Respiratory Rate Blood Pressure 108/67 115/98 H Blood Pressure [Ri ght Upper Arm] Pulse Oximetry 99 98 96 Oxygen Delivery Me thod Course Course ED Course: 1500 patient says his pain is better. Sleeping. Recheck troponin at 3:50 p.m.-ordered Reevaluation(s) Reevaluation #1: Recheck-17 15. Continues to feel well. Chest pain resolved. Discussed labs and workup so far. Patient comfortable plan to discharge home with careful outpatient monitoring, close follow-up. Will try empirically a course of omeprazole in case this might have been reflux. Patient understands that reflux is not truly a definitive diagnosis at this time and further follow-up and testing may be needed. Vital Signs Vital signs: Initial Vital Signs Temperature 97.3 F L 08/23/25 13:20 Temperature Source Temporal Artery Scan 08/23/25 13:20 Pulse Rate 72 08/23/25 13:20 Pulse Rhythm Regular 08/23/25 13:20 Pulse Strength 3+ Normal 08/23/25 13:20 Respiratory Rate 18 08/23/25 13:20 Blood Pressure 123/89 08/23/25 13:20 Blood Pressure Mean 100 08/23/25 13:20 Blood Pressure Position High-Fowlers 08/23/25 13:20 Pulse Oximetry 98 08/23/25 13:20 Oxygen Delivery Method Room Air 08/23/25 13:20 Vital Signs Temperature 97.3 F L 08/23/25 13:20 Pulse Rate 72 08/23/25 13:20 Respiratory Rate 18 08/23/25 13:20 Blood Pressure 123/89 08/23/25 13:20 Pulse Oximetry 98 08/23/25 13:20 Oxygen Delivery Method Room Air 08/23/25 13:20 Temperature 97.3 F L 08/23/25 13:20 Pulse Rate 60 08/23/25 14:22 Respiratory Rate 14 08/23/25 13:54 Blood Pressure 115/98 H 08/23/25 14:22 Pulse Oximetry 96 08/23/25 14:22 Oxygen Delivery Method Room Air 08/23/25 13:20 Medications Administered Medications: Discontinued Medications Generic Name Dose Route Start Last Admin Trade Name Soheila PRN Reason Stop Dose Admin Aspirin 162 mg 08/23/25 13:53 08/23/25 14:06 Aspirin 81 Mg Tab.Chew PO 08/23/25 13:54 162 mg ONCE ONE Administration Lidocaine/Aluminum/Magnesium/Simeth 30 ml 08/23/25 13:53 08/23/25 14:09 Gi Cocktail (Visc Lido/Antacid) 30 Ml PO 08/23/25 13:54 30 ml ONCE ONE Administration Ondansetron HCl 4 mg 08/23/25 13:53 08/23/25 14:07 Ondansetron 2 Mg/Ml Inj IVP 08/23/25 13:54 4 mg ONCE ONE Administration Medical Decision Making [facility] Narrative Medical decision making narrative: This patient presents to the ER today for evaluation of chest pain that started this afternoon that 30 minutes prior to arrival I was watching a movie. He. Differential was broad. No evidence of palpitations, syncope or other cardiac dysrhythmia. We considered possible ACS. No recent chest pains or other symptoms of angina. He actually was exercising this morning and was chest pain-free while going out for a bike ride and lifting weights. Risk factors would include history of elevated BMI, tobacco and THC use. No sympathomimetic use for 6 years. workup with EKG and troponin is negative. HEART score is 2. Given time since onset of symptoms, we did check an arrival and a 2 hour delta troponin. I do not think the patient needs to be admitted for further sets of enzymes. EKG shows no evidence for pericarditis. Clinical presentation not suggestive of myocarditis. Chest x-ray shows no evidence for pneumonia, pneumothorax, pulmonary edema, pleural effusion, rib fracture, cardiomegaly. Mediastinum is normal on the x-ray. The patient has no ripping or tearing pain through to the back and has symmetric pulses on exam, no other acute neuro findings so I doubt aortic dissection. Risk of radiation and contrast exposure would outweigh the benefit of CT angiogram. We considered PE for this patient. He is overall low risk. He is negative by PERC. Therefore will hold off on D-dimer or CT PA at this time. No wheezing or bronchospasm to suggest COPD/asthma. Patient does report a long history of acid reflux and was endorsing some GERD symptoms here in the ER. Symptoms did improve with GI cocktail. No signs of chest wall cellulitis, shingles, injury. With reasonable clinical confidence, I think the patient is safe for outpatient follow up. Discussed return precautions. Questions answered. Patient voices comfort with the plan. Lab Data Labs: Lab Results 08/23/25 08/23/25 Range/Units 13:50 16:17 WBC 7.27 (4.50-11.00) K/uL RBC 4.20 L (4.30-5.90) m/uL Hgb 13.0 L (13.5-17.5) gm/dL Hct 37.8 (37.0-53.0) % MCV 90 (80-100) fL MCH 31 (26-34) pg MCHC 34 (32-36) gm/dL RDW Coeff of Janny 12.5 (11.5-15.5) % Plt Count 293 (140-440) K/uL Neut % (Auto) 64.3 (42.0-72.0) % Lymph % (Auto) 28.1 (20-44) % Ocean % (Auto) 5.2 (0.0-11.0) % Eos % (Auto) 1.9 (0.0-7.0) % Baso % (Auto) 0.4 (0.0-3.0) % Neut # (Auto) 4.67 (1.7-7.0) K/uL Lymph # (Auto) 2.04 (0.90-2.90) K/uL Ocean # (Auto) 0.40 (0.00-0.90) K/UL Eos # (Auto) 0.14 (0.00-0.50) K/uL Baso # (Auto) 0.03 (0.00-0.30) K/uL Abs Immat Gran (auto) 0.01 (0.00-0.30) K/uL Imm/Tot Granulo (auto) 0.1 % Sodium 132 L (135-149) mmol/L Potassium 5.7 H (3.6-5.1) mmol/L Chloride 101 (96-114) mmol/L Carbon Dioxide 25 (20-32) mmol/L Anion Gap 6 L (7-15) mEq/L BUN 15 (5-24) mg/dL Creatinine 1.0 (0.5-1.5) mg/dL Estimated GFR 96 ml/min Glucose 119 H (60-115) mg/dL Calcium 8.7 (8.4-10.6) mg/dL Total Bilirubin 1.0 (0.1-1.5) mg/dL AST 50 H (12-35) U/L ALT 22 (4-50) U/L Alkaline Phosphatase 82 (40-150) U/L Troponin I 0.02 < 0.01 (0.01-0.04) ng/mL Total Protein 7.3 (6.0-8.3) g/dL Albumin 4.1 (3.3-5.0) g/dL Lipase 229 (23-300) U/L Ethyl Alcohol < 0.01 (0.01-0.03) % Imaging Data Chest x-ray: Attestation: I have reviewed the pertinent imaging results. My impression: No acute infiltrates. No pneumothorax. Normal Radiologist's impression: Impression: No acute cardiopulmonary disease. ECG Data Attestation: I personally reviewed and interpreted this ECG as follows: Interpretation: Sinus bradycardia Rate 59 NE interval 140. Normal QRS axis. No pathologic Q-waves. Low-voltage QRS No ST segment elevation or depression. T-wave flattening in leads 3 and AVF. QTC 410, QTC 405 No old EKGs available for comparison Discharge Plan Discharge Clinical Impression: Chest pain Patient Disposition: Home, Self-Care Condition: Stable Instructions: Chest Pain (ED) Additional Instructions: As we discussed, so far your workup looks reassuring. As we discussed, not everything shows up during your time here in the ER. If you have more episodes of chest pain, or other symptoms such as trouble breathing, palpitations, fainting spells, please return to the ER right away. At this point, it is not clear if your chest pain was related to heartburn or not. However since you have been having a lot of heartburn lately, you can try a course of stomach acid medicine called omeprazole. I sent a prescription for omeprazole 40 mg once daily to your pharmacy. Please follow-up with your regular doctor for recheck within 5-7 days. Prescriptions: New omeprazole 40 mg capsule,delayed release(DR/EC) 40 mg PO DAILY Qty: 30 2RF No Action albuterol sulfate 90 mcg/actuation HFA aerosol inhaler 2 puff inhalation Q4-6H PRN (Reason: shortness of breath or wheezing) Qty: 1 12RF Follow Up/Referrals: TREV PRESTON DO [Primary Care Provider, Family Practice] Stand Alone Forms: Work/School Release, [facility] Inst[facility]
--- OUTSIDE RECORDS SUMMARY | 2025-08-23 13:17 | XMS_ITS | Clinical Summary ---
Author Organization [employer] Address [address] [place] [address] Care Team Providers Care Lithograph Printer Name Role Phone Pcp, No Primary Care [...] working or driving. 21 Tablet 5 Active cholecalciferol 50,000 unit capsuleIndications [...] to affected areas. 113 g 5 Active levothyroxine 25 mcg tabletIndications: Subclinical hypothyroidism Take 1 Tablet (25 mcg) by mouth before breakfast. 90 Tablet 5 Active Active Problems Problem Noted Date Diagnosed Date Subclinical hypothyroidism 02/02/2025 Vitamin D deficiency 02/02/2025 Tobacco dependence due to cigarettes 01/30/2025 Mild intermittent asthma with acute exacerbation 10/01/2022 Left lumbar radiculopathy 03/30/2022 Immunizations Immunization Administration Dates Next Due Tdap 06/26/2023 Family History Medical History Relation Name Comments Hypertension Brother Hypertension Father Stroke Father Diabetes Mother Hypothyroidism Mother Cancer-breast Sister Hypertension Sister Relation Name Status Comments Brother Alive Father Mother Alive Sister Alive Social History Tobacco Use Types Packs/Day Years Used Date Smoking Tobacco: Every Day Cigarettes 0.5 24.9 Started: 2000 Smokeless Tobacco: Never Tobacco Cessation:Ready [...] on file 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 Gender Identity Not on file Sexual Orientation [...] 6-49 (1 of 2 - PCV) 2001 HPV series for age 9-45 (1 - 3-dose SCDM series) 2009 COVID-19 vaccine series ( - 2024- season) 2025 09/04/2021, 07/30/2021 Influenza Vaccine (#1) 2025 BMI (ht and wt on same day) for age 18+ 01/30/2026 0 01/30/2025, 12/15/2021 Depression screening for age 12+ 01/30/2026 01/31/20 25, 10/10/2021 Lipids for age 35-44 01/30/2030 01/30/2025 Tetanus booster 06/26/2033 06/26/2023 RSV vaccine for adults or pr egnancy (1 - 1-dose 75+ series) 2057 HIV for age 15-65 Completed 01/30/2025 Hepatitis C screening for age 18-79 Completed 01/30 Procedures Procedure Name Priority Date/Time Associated Diagnosis Comments ANTI HIV 1/2 Routine 01/30/2025 9:38 AM CDT Encounter for screening for human immunodeficiency virus (HIV) ANTI HCV Routine 01/30/2025 9:38 AM CDT Encounter for hepatitis C screening test for low risk patient LIPID PANEL W REFLEX MEASURED LDL Routine 01/30/2025 9:38 AM CDT Screening for cardiovascular condition from Last 3 Months or Most Recently Relevant to Health Maintenance Results * LIPID PANEL W REFLEX MEASURED LDL [[id number]} (01/30/2025 9:38 AM CDT) CHOLESTEROL, TOTAL 165 <200 mg/dL [facility] HDL CHOLESTEROL 79 > OR = 40 mg/dL [facility] TRIGLYCERIDES 60 <150 mg/dL [facility] LDL-CHOLESTEROL 72 mg/dL (calc) [facility] Comment: Reference range: <100 Desirable range <100 mg/dL for primary prevention; <70 mg/dL for patients with CHD or diabetic patients with > or = 2 CHD risk factors. LDL-C is now calculated using the Jonathan-Pamela calculation, which is a validated novel method providing better accuracy than the Friedewald equation in the estimation of LDL-C. Jonathan DUBON et al. TRINO. 2013;310(19): 9339-7515 (http://education.[employer].SkyBridge/faq/YNJ854) CHOL/HDLC RATIO 2.1 <5.0 (calc) [facility] NON HDL CHOLESTEROL 86 <130 mg/dL (calc) [facility] Comment: For patients with diabetes plus 1 major ASCVD risk factor, treating to a non-HDL-C goal of <100 mg/dL (LDL-C of <70 mg/dL) is considered a therapeutic option. Blood BLOOD SPECIMEN / Unknown 01/30/2025 9:38 AM CDT 01/30/2025 9:38 AM CDT Peggy STOVER CHEMISTRY Final Res ult Performing Organization Address City/[facility]/ZIP Co de Phone Number [facility] [address] [place] [address], [facility] [address] [facility] [place] [address] * ANTI HCV [66349.2] (01/30/2025 9:38 AM CDT) HEPATITIS C ANTIBODY NON-REACTI VE NON-REACT FLACO [facility] Comment: HCV antibody was non-reactive. There is no laboratory evidence of HCV infection. In most cases, no further action is required. However, if recent HCV exposure is suspected, a test for HCV RNA (test code 54203) is suggested. For additional information please refer to http://education.Professionali.ru/faq/SEE20x4 (This link is being provided for informational/ educational purposes only.) Blood BLOOD SPECIMEN / Unknown 01/30/2025 9:38 AM CDT 01/30/2025 9:38 AM CDT us Peggy STOVER SEND OUTS Final Res ult Performing Organization Address City/[facility]/ZIP Co de Phone Number [facility] [address] [facility] [place] [address], [facility] [address] [facility] [place] [address] * ANTI HIV 1/2 [67246.0] (01/30/2025 9:38 AM CDT) Pathologist [facility] HIV AG/AB, 4TH GEN NON-REACT FLACO NON-REACT FLACO [facility] Comment: HIV-1 antigen and HIV-1/HIV-2 antibodies were [...] purpose. For additional information please refer to http://Smart[employer] Jieyin.Professionali.ru/faq/YMV340 (This link is being provided for informational/ educational purposes only.) The performance of this assay has not been clinically validated in patients less than 2 years old. Blood BLOOD SPECIMEN / Unknown 01/30/2025 9:38 AM CDT 01/30/2025 9:38 AM CDT Peggy STOVER SEND OUTS Final Res ult [facility] [address] [place] [address], [facility] [address] [place] [address] from Last 3 Months or Most Recently Relevant to Health Maintenance Insurance [facility] MIHIR BOWENS Care Teams Lithograph Printer Relationship Specialty Start Date End Date Pcp, No . PCP - General 10/22/20
--- NOTE | 2025-08-23 13:31 | CRLHL7_ITS ---
For Patients: As a result of the Century Cures Act, medical imaging exams and procedure reports are released immediately into your electronic medical record. You may view this report before your referring provider. If you have questions, please contact your health care provider. Indication: Chest pain Technique: PA and lateral views of the chest. Comparison: 05/08/2025. Findings: Normal cardiomediastinal silhouette. No focal consolidation, pleural effusions, or visualized pneumothorax. Moderate degenerative changes of the visualized spine. Impression: No acute cardiopulmonary disease. Dictated by Duane Lechuga MD @ 08/23/2025 1:59:42 PM (Electronically Signed)
[2025-08-23 13:59] LABS: Hematocrit* 37.8 % (37.0-53.0); Hemoglobin* 13.0 gm/dL (13.5-17.5); Immature Granulocytes Abs Auto 0.01 K/uL (0.00-0.30); Immature Granulocytes Pct Auto 0.1 %; Lymphocytes Absolute Auto 2.04 K/uL (0.90-2.90); Mean Corpuscular HGB Conc 34 gm/dL (32-36); Mean Corpuscular Hemoglobin 31 pg (26-34); Mean Corpuscular Volume 90 fL (80-100); RDW Coefficient of Variation % 12.5 % (11.5-15.5); Red Blood Count* 4.20 m/uL (4.30-5.90); Slide Review Reflex No; White Blood Count* 7.27 K/uL (4.50-11.00)
[2025-08-23] MEDS: ASPIRIN 81 MG TAB.CHEW 162 MG PO (14:06)
[2025-08-23] MEDS: ONDANSETRON 2 MG/ML inj 4 MG IVP (14:07)
[2025-08-23] MEDS: GI COCKTAIL (VISC LIDO/ANTACID) 30 ML PO (14:09)
[2025-08-23 14:13] LABS: Albumin* 4.1 g/dL (3.3-5.0); Chloride* 101 mmol/L (96-114)
[2025-08-23 14:14] LABS: Potassium* 5.7 mmol/L (3.6-5.1); Sodium* 132 mmol/L (135-149)
[2025-08-23 14:16] LABS: Alanine Aminotransferase* 22 U/L (4-50); Alkaline Phosphatase* 82 U/L (40-150); Anion Gap 6 mEq/L (7-15); Aspartate Amino Transferase* 50 U/L (12-35); Bilirubin Total* 1.0 mg/dL (0.1-1.5); Blood Urea Nitrogen* 15 mg/dL (5-24); Carbon Dioxide* 25 mmol/L (20-32); Creatinine* 1.0 mg/dL (0.5-1.5); Estimated Glomerular Filt Rate 96 ml/min; Total Protein* 7.3 g/dL (6.0-8.3)
[2025-08-23 14:17] LABS: Calcium* 8.7 mg/dL (8.4-10.6); Glucose* 119 mg/dL (60-115)
[2025-08-23 14:20] LABS: Ethanol* < 0.01 % (0.01-0.03)
== END 2025-08-23 17:27 | disposition home or self-care (01) ==
PROVIDERS: Emergency Provider Emergency Medicine; PCP Student in an Organized Health Care Education/Training Program
DX: R07.9 Chest pain, unspecified (principal); F17.210 Nicotine dependence, cigarettes, uncomplicated; F12.90 Cannabis use, unspecified, uncomplicated
CPT/HCPCS: 36415; 71046; 80053; 82077; 83690; 84484; 85025; 93005; 96374; 99283; 99284; 99285; A9270; J2405

== ENCOUNTER 2025-08-28 08:55 | Emergency (ER) | payer BC, SELFPAY ==
[2025-08-28 08:58] VITALS: BP 149/72; PULSE 63; RESP 18; TEMP 36.4; O2SAT 98; BMI 33.1
--- OUTSIDE RECORDS SUMMARY | 2025-08-28 08:58 | XMS_ITS | Clinical Summary ---
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 Gender Identity Not on file Sexual Orientation [...] Procedure Name Priority Date/Time Associated Diagnosis Comments SCAN-RADIOLOGY REPORT 08/23/2025 12:00 AM CDT ANTI HIV 1/2 Routine 01/30/2025 9:38 AM CDT Encounter for screening for human immunodeficiency virus (HIV) ANTI HCV Routine 01/30/2025 9:38 AM CDT Encounter for hepatitis C screening test for low risk patient LIPID PANEL W REFLEX MEASURED LDL Routine 01/30/2025 9:38 AM CDT Screening for cardiovascular condition from Last 3 Months or Most Recently Relevant to Health Maintenance Results * SCAN-RADIOLOGY REPORT (08/23/2025 12:00 AM CDT) Anatomical Region Laterality Modality Other us Scanner OTHER Final Result * LIPID PANEL W REFLEX MEASURED LDL [[id number]} (01/30/2025 9:38 AM CDT) CHOLESTEROL, TOTAL 165 [...] factors. LDL-C is now calculated using the Zaki calculation, which is a validated novel method providing better accuracy than the Friedewald equation in the estimation of LDL-C. Jonathan SS et al. TRINO. 2013;310(19): 8828-9452 (http://education.[facility].com/faq/SXD094) CHOL/HDLC RATIO 2.1 <5.0 (calc) [facility] NON HDL CHOLESTEROL 86 <130 mg/dL (calc) [facility] Comment: For patients with diabetes plus 1 major ASCVD risk factor, treating to a non-HDL-C goal of <100 mg/dL (LDL-C of <70 mg/dL) is considered a therapeutic option. Blood BLOOD SPECIMEN / Unknown 01/30/2025 9:38 AM CDT 01/30/2025 9:38 AM CDT us Peggy STOVER CHEMISTRY Final Res ult Performing Organization Address [facility]/ZIP Co de Phone Number [employer] [address] [address], [employer] [address] * ANTI HCV [35443.2] (01/30/2025 9:38 AM CDT) HEPATITIS C ANTIBODY NON-REACTI VE NON-REACT FLACO [facility] Comment: HCV antibody was non-reactive. There is no laboratory evidence of HCV infection. In most cases, no further action is required. However, if recent HCV exposure is suspected, a test for HCV RNA (test code 91280) is suggested. For additional information please refer to http://education.AutomateIt/faq/XFY92h8 (This link is being provided for informational/ educational purposes only.) Blood BLOOD SPECIMEN / Unknown 01/30/2025 9:38 AM CDT 01/30/2025 9:38 AM CDT us Peggy STOVER SEND OUTS Final Res ult Performing Organization Address [facility]/ZIP Co de Phone Number [employer] [address] [address], [facility] [address] [place] [address] * ANTI HIV 1/2 [42721.0] (01/30/2025 9:38 AM CDT) HIV AG/AB, 4TH GEN NON-REACT FLACO NON-REACT FLACO [facility] Comment: HIV-1 antigen and HIV-1/HIV-2 antibodies were [...] purpose. For additional information please refer to http://education.AutomateIt/faq/XGG510 (This link is being provided for informational/ educational purposes only.) The performance of this assay has not been clinically validated in patients less than 2 years old. Blood BLOOD SPECIMEN / Unknown 01/30/2025 9:38 AM CDT 01/30/2025 9:38 AM CDT Peggy STOVER SEND OUTS Final Res ult [employer] [facility] [address] [place] [address], [facility] [address] [place] [address] from Last 3 Months or Most Recently Relevant to Health Maintenance Insurance [facility] MIHIR BOWENS * Guarantor: Stf Contract, [facility] 2012 Account Type Relation to Patient Date of Phone Billing Address Contract Other [facility] [place] [id number] Care Teams Creative Services Coordinator Relationship Specialty Start Date End Date Pcp, No . PCP - General 10/22/20
--- NOTE | 2025-08-28 09:24 | ED.GENADULT ---
HPI - General Adult General Time Seen by Provider: 09:24 Date Seen: 08/28/25 Chief complaint: Headache/Migraine Stated complaint: Dizziness, head/back/neck pain Time Seen by Provider: 08/28/25 09:24 Source: patient, RN notes reviewed and old records reviewed Mode of arrival: ambulatory Limitations: no limitations History of Present Illness HPI narrative: This 44-year-old male is coming in with left-sided headache and neck stiffness and pain for about the last week. He notes symptoms started after he was seen in the ER for chest pain. He was here on August 23 with chest pain. His headache is left-sided, neck in general feels stiff and painful. He has had no fevers or chills, no cough or cold symptoms. No travel, no trauma. He does not have reported significant history of prior headaches. Vision maybe feels a little blurry. He does not note any incoordination, weakness of arms or legs. He has been able to ambulate. He does have significant photophobia with this headache. Related Data Previous Rx's ?Medication ?Instructions ?Recorded albuterol sulfate 90 mcg/actuation 2 puff inhalation Q4-6H PRN 01/12/24 aerosol inhaler shortness of breath or wheezing #1 packet Allergies Allergy/AdvReac Type Severity Reaction Status Date / Time pollen extracts Allergy Intermediate Verified 08/28/25 10:41 Review of Systems Status of ROS: Reports: 6 or more systems reviewed and unremarkable except as noted in History and below PFS PFS Social History Smoking Status: Current every day smoker What tobacco products do you use: cigarettes Do you use any of these nicotine containing products: None Second hand tobacco smoke exposure: Yes How often do you have a drink containing alcohol: 2-3 times a week How many standard drinks containing alcohol do you have on a typical day: 1 or 2 AUDIT-C Alcohol total score: 3 Non-prescribed substance use: denies use Exam Const: Vital Signs, click to edit/add: Vital Signs - 24 hr 08/28/25 08:58 08/28/25 10:18 08/28/25 10:30 Temperature 97.5 F L Pulse Rate 52 L 50 L Pulse Rate [Right Pulse Oximeter] 63 Respiratory Rate 18 16 Blood Pressure [Ri ght Upper Arm] 149/72 H Pulse Oximetry 98 99 100 Oxygen Delivery Me thod Room Air This 44-year-old male is seen in exam room 1, he is lying on the bed. Lights are off in the room, he is alert, interactive, no apparent distress. He did sit up at 1 point, had some dry he heaving but no actual vomiting. Pupils are equal round, sclera clear, conjugate gaze. Serum in in the right canal but no drainage around it, cannot see the TM. Left TM looks normal. Oropharynx is normal, speech is normal, symmetrical facial function. He has no point tenderness on palpation of his neck in does have full range of motion of his neck. There is no adenopathy, no neck masses. Lungs are clear, good air entry, no wheezing or crackles, no tachypnea, no accessory muscle use. CV regular rate and rhythm, no murmur, normal S1-S2. Abdomen is soft, nontender, nondistended, no organomegaly. No focal neurologic deficits noted in his arms or legs, he was ambulatory into the ED of his own accord. Documenting provider has reviewed patient's vital signs: yes Course Course ED Course: This 44-year-old male is complaining of a headache with neck pain. Do need to consider dissection. He seems rather uncomfortable and with the photophobia, this certainly could be a migraine. Will start treatment with IV fluids, Reglan and Benadryl. He is going to get imaging with head CT and CT angio of head and neck. Will get a full complement of labs. Reevaluation(s) Time of Reevaluation #1: 11:38 Reevaluation #1: Patient is feeling better, just tired from the medications. He feels his headache is improved, is ready to go home. We discussed normal head CT imaging including the angiography. His labs are reassuring, nothing concerning with them. He does need a note for work. Plan to discharge to home at this time. Vital Signs Vital signs: Initial Vital Signs Temperature 97.5 F L 08/28/25 08:58 Temperature Source Temporal Artery Scan 08/28/25 08:58 Pulse Rate 63 08/28/25 08:58 Pulse Rhythm Regular 08/28/25 08:58 Pulse Strength 3+ Normal 08/28/25 08:58 Respiratory Rate 18 08/28/25 08:58 Blood Pressure 149/72 H 08/28/25 08:58 Blood Pressure Mean 97 08/28/25 08:58 Blood Pressure Position Sitting 08/28/25 08:58 Pulse Oximetry 98 08/28/25 08:58 Oxygen Delivery Method Room Air 08/28/25 08:58 Vital Signs Temperature 97.5 F L 08/28/25 08:58 Pulse Rate 63 08/28/25 08:58 Respiratory Rate 18 08/28/25 08:58 Blood Pressure 149/72 H 08/28/25 08:58 Pulse Oximetry 98 08/28/25 08:58 Oxygen Delivery Method Room Air 08/28/25 08:58 Temperature 97.5 F L 08/28/25 08:58 Pulse Rate 50 L 08/28/25 10:30 Respiratory Rate 16 08/28/25 10:18 Blood Pressure 149/72 H 08/28/25 08:58 Pulse Oximetry 100 08/28/25 10:30 Oxygen Delivery Method Room Air 08/28/25 08:58 Medications Administered Medications: Discontinued Medications Generic Name Dose Route Start Last Admin Trade Name Edgarq PRN Reason Stop Dose Admin Diphenhydramine HCl 25 mg 08/28/25 09:30 08/28/25 10:15 Diphenhydramine 50 Mg/Ml Inj IVP 08/28/25 09:31 25 mg ONCE ONE Administration Sodium Chloride 1,000 mls @ 500 mls/hr 08/28/25 09:35 08/28/25 11:24 0.9 % Sodium Chloride 1000 Ml IV 08/28/25 11:34 Infused .Q2H KEO Infusion Metoclopramide HCl 10 mg/ 102 mls @ 306 mls/hr 08/28/25 09:30 08/28/25 10:37 Sodium Chloride IVPB 08/28/25 09:31 Infused ONCE ONE Infusion Medical Decision Making Lab Data Lab results reviewed: Yes I reviewed the patient's lab results Labs: Lab Results 08/28/25 Range/Units 09:40 WBC 6.26 (4.50-11.00) K/uL RBC 4.31 (4.30-5.90) m/uL Hgb 13.2 L (13.5-17.5) gm/dL Hct 39.4 (37.0-53.0) % MCV 91 (80-100) fL MCH 31 (26-34) pg MCHC 34 (32-36) gm/dL RDW Coeff of Janny 12.5 (11.5-15.5) % Plt Count 312 (140-440) K/uL Neut % (Auto) 54.7 (42.0-72.0) % Lymph % (Auto) 33.2 (20-44) % [place] % (Auto) 7.3 (0.0-11.0) % Eos % (Auto) 3.4 (0.0-7.0) % Baso % (Auto) 0.6 (0.0-3.0) % Neut # (Auto) 3.42 (1.7-7.0) K/uL Lymph # (Auto) 2.08 (0.90-2.90) K/uL [place] # (Auto) 0.50 (0.00-0.90) K/UL Eos # (Auto) 0.21 (0.00-0.50) K/uL Baso # (Auto) 0.04 (0.00-0.30) K/uL Abs Immat Gran (auto) 0.05 (0.00-0.30) K/uL Imm/Tot Granulo (auto) 0.8 % ESR 5 (2-15) mm/hr INR 0.95 (0.91-1.10) APTT 28 (23-33) Seconds D-Dimer Quant (PE/DVT) 0.28 (0.00-0.50) ug/ml Sodium 135 (135-149) mmol/L Potassium 4.1 (3.6-5.1) mmol/L Chloride 104 (96-114) mmol/L Carbon Dioxide 28 (20-32) mmol/L Anion Gap 3 L (7-15) mEq/L BUN 16 (5-24) mg/dL Creatinine 0.9 (0.5-1.5) mg/dL Estimated Creat Clear 106.92 Estimated GFR 109 ml/min Glucose 84 (60-115) mg/dL Lactate 0.9 (0.5-1.9) mmol/L Calcium 8.6 (8.4-10.6) mg/dL Total Bilirubin 0.3 (0.1-1.5) mg/dL AST 23 (12-35) U/L ALT 16 (4-50) U/L Alkaline Phosphatase 93 (40-150) U/L C-Reactive Protein < 0.5 L (0.5-1.0) mg/dL Total Protein 6.5 (6.0-8.3) g/dL Albumin 3.6 (3.3-5.0) g/dL Imaging Data CT scan - head: Attestation: I have reviewed the pertinent imaging results. Radiologist's impression: Patient: [facility] Facility:?[facility] Patient ID:?[id number] Site Patient ID:?[id number] Site :?[id number] Study:?CT-Head WITHOUT NON ACUTE-08/28/2025 10:07:37 AM Ordering Physician:Marilee Johnston Final Report: Indication: Headache. Technique: CT of the brain was performed without intravenous contrast. Comparison: None relevant available at this institution. Findings: No acute blurring of the seals-white differentiation. There is no intracranial hemorrhage. The ventricles are proportionate to the cerebral sulci. The 4th ventricle is midline. Basal cisterns appear patent. No abnormal extra-axial fluid collection identified. There is no intracranial mass, mass effect or midline shift identified. No depressed calvarial fracture. Mild paranasal sinus mucosal disease. Impression: No acute intracranial process. Please note that all CT scans at this facility use dose modulation, iterative reconstruction, and/or weight-based dosing when appropriate to reduce radiation dose to as low as reasonably achievable. Dictated by Simon Dailey MD @ 08/28/2025 10:59:25 AM (Electronic Signature) CT- Other: Attestation: I have reviewed the pertinent imaging results. Radiologist's impression: Patient: [facility] Facility:?[facility] Patient ID:?[id number] Site Patient ID:?[id number] Site :?1980 Study:?CT-Head Angio 95CC ISOVUE 370 NON ACUTE-08/28/2025 10:09:11 AM Ordering Physician:Marilee Johnston Preliminary Report: Preliminary Report: : CTA head: No proximal intracranial arterial occlusions, filling defects or high-grade stenoses. CTA neck: No high-grade stenosis or filling defects are identified in the cervical carotid systems or cervical vertebral arteries. No dissection identified. Dictated by Simon Dailey MD @ 08/28/2025 10:55:55 AM Read by:?Simon Dailey MD @08/28/2025 10:56:20 AM Discharge Plan Discharge Clinical Impression: Headache Qualifiers: Headache type: unspecified Headache chronicity pattern: acute headache Intractability: not intractable Qualified Code(s): R51.9 - Headache, unspecified Patient Disposition: Home, Self-Care Condition: Stable Instructions: General Headache (ED) Additional Instructions: Go home rest, stay hydrated. Can use Tylenol 1000 mg up to 3 times a day and ibuprofen 600 mg every 6 hours as needed with food for any residual symptoms. Note provided to be off work for today. If you have further concerns, headache is worsening and not controlled by a outline medicines, can seek re-evaluation Activity Level: Activity as Tolerated Prescriptions: No Action albuterol sulfate 90 mcg/actuation HFA aerosol inhaler 2 puff inhalation Q4-6H PRN (Reason: shortness of breath or wheezing) Qty: 1 12RF Follow Up/Referrals: TREV PRESTON DO [Primary Care Provider, Family Practice] Stand Alone Forms: Work/School Release, [facility] Info Instructions
--- NOTE | 2025-08-28 09:30 | CRLHL7_ITS ---
For Patients: As a result of the Century Cures Act, medical imaging exams and procedure reports are released immediately into your electronic medical record. You may view this report before your referring provider. If you have questions, please contact your health care provider. INDICATION: Severe headache, nausea. TECHNIQUE: CTA head using intravenous contrast with bolus tracking, 3D angiographic rendering using maximum intensity projection (MIP) and images permanently archived. CTA neck using intravenous contrast with bolus tracking, 3D angiographic rendering using maximum intensity projection (MIP) and images permanently archived. FINDINGS: CTA head: There is normal opacification of the intracranial vasculature. There is no large vessel occlusion or significant intracranial stenosis. No aneurysm is identified. CTA neck: There is no significant carotid artery stenosis or dissection. There is no significant vertebral artery stenosis or dissection. IMPRESSION: Unremarkable head CTA. Unremarkable neck CTA. Please note that all CT scans at this facility use dose modulation, iterative reconstruction, and/or weight-based dosing when appropriate to reduce radiation dose to as low as reasonably achievable. Dictated by Naga Mayfield MD @ 08/28/2025 11:09:46 AM (Electronically Signed)
--- NOTE | 2025-08-28 09:31 | CRLHL7_ITS ---
For Patients: As a result of the Century Cures Act, medical imaging exams and procedure reports are released immediately into your electronic medical record. You may view this report before your referring provider. If you have questions, please contact your health care provider. Indication: Headache. Technique: CT of the brain was performed without intravenous contrast. Comparison: None relevant available at this institution. Findings: No acute blurring of the seals-white differentiation. There is no intracranial hemorrhage. The ventricles are proportionate to the cerebral sulci. The 4th ventricle is midline. Basal cisterns appear patent. No abnormal extra-axial fluid collection identified. There is no intracranial mass, mass effect or midline shift identified. No depressed calvarial fracture. Mild paranasal sinus mucosal disease. Impression: No acute intracranial process. Please note that all CT scans at this facility use dose modulation, iterative reconstruction, and/or weight-based dosing when appropriate to reduce radiation dose to as low as reasonably achievable. Dictated by Simon Dailey MD @ 08/28/2025 10:59:25 AM (Electronically Signed)
[2025-08-28 09:51] LABS: Lactate* 0.9 mmol/L (0.5-1.9)
[2025-08-28 09:56] LABS: Hematocrit* 39.4 % (37.0-53.0); Hemoglobin* 13.2 gm/dL (13.5-17.5); Immature Granulocytes Abs Auto 0.05 K/uL (0.00-0.30); Immature Granulocytes Pct Auto 0.8 %; Lymphocytes Absolute Auto 2.08 K/uL (0.90-2.90); Mean Corpuscular HGB Conc 34 gm/dL (32-36); Mean Corpuscular Hemoglobin 31 pg (26-34); Mean Corpuscular Volume 91 fL (80-100); RDW Coefficient of Variation % 12.5 % (11.5-15.5); Red Blood Count* 4.31 m/uL (4.30-5.90); White Blood Count* 6.26 K/uL (4.50-11.00)
[2025-08-28 10:01] LABS: Slide Review Reflex No
[2025-08-28 10:14] LABS: Albumin* 3.6 g/dL (3.3-5.0); Chloride* 104 mmol/L (96-114); Potassium* 4.1 mmol/L (3.6-5.1); Sodium* 135 mmol/L (135-149)
[2025-08-28] MEDS: METOCLOPRAMIDE HCL 10 MG in 0.9 % SODIUM CHLORIDE 100 ml 100 ML 306 MG IVPB (10:15)
[2025-08-28 10:17] LABS: Alanine Aminotransferase* 16 U/L (4-50); Alkaline Phosphatase* 93 U/L (40-150); Anion Gap 3 mEq/L (7-15); Aspartate Amino Transferase* 23 U/L (12-35); Bilirubin Total* 0.3 mg/dL (0.1-1.5); Blood Urea Nitrogen* 16 mg/dL (5-24); Carbon Dioxide* 28 mmol/L (20-32); Creatinine* 0.9 mg/dL (0.5-1.5); Est. Creatinine Clearance* 106.92; Estimated Glomerular Filt Rate 109 ml/min; INR 0.95 (0.91-1.10); Prothrombin Time 13.4 Seconds
[2025-08-28 10:18] VITALS: PULSE 52; RESP 16; O2SAT 99
[2025-08-28 10:18] LABS: Calcium* 8.6 mg/dL (8.4-10.6); Glucose* 84 mg/dL (60-115); Total Protein* 6.5 g/dL (6.0-8.3)
[2025-08-28 10:20] LABS: D Dimer Quantitative* 0.28 ug/ml (0.00-0.50)
[2025-08-28 10:30] VITALS: PULSE 50; O2SAT 100
[2025-08-28 10:53] LABS: Erythrocyte SedimentationRate* 5 mm/hr (2-15)
[2025-08-28 11:24] VITALS: BP 108/71; PULSE 50; O2SAT 99
[2025-08-28 11:25] VITALS: PULSE 53; O2SAT 99
[2025-08-28 11:30] VITALS: PULSE 51; O2SAT 99
== END 2025-08-28 11:53 | disposition home or self-care (01) ==
PROVIDERS: Emergency Provider Family Medicine; PCP Student in an Organized Health Care Education/Training Program
DX: R51.9 Headache, unspecified (principal)
CPT/HCPCS: 36415; 70450; 70496; 70498; 80053; 83605; 85025; 85379; 85610; 85651; 85730; 86140; 94761; 96365; 96375; 99285; J1200; J2765; J7030; Q9967